=== PATIENT | female | born 1995 | race Caucasian/White ===

== ENCOUNTER 2017-08-14 18:45 | Emergency (ER) | payer OTHER ==
[~2017-08-14] VITALS: Ht 165.1 cm; Wt 79.4 kg
[2017-08-14] MEDS ORDERED: PRENATAL 19 TA1 EAC1 PO (18:53)
[2017-08-14 19:09] LABS: BILIRUBIN NEGATIVE (NEGATIVE); BLOOD NEGATIVE (NEGATIVE); CLARITY CLEAR (CLEAR); COLOR YELLOW (YELLOW); GLUCOSE NEGATIVE (NEGATIVE); KETONE TRACE (NEGATIVE); LEUKO ESTERASE TRACE (NEGATIVE); NITRITE NEGATIVE (NEGATIVE); PH 6.5 (5.0-9.0); SPECIFIC GRAVITY <= 1.005 (1.005-1.030); UROBILINOGEN 0.2 E.U./dl (0.2-1.0)
[2017-08-14 19:15] LABS: YEAST TRACE
[2017-08-14 19:59] LABS: BASO % 0.2 % (0.0-1.0); EOS % 0.3 % (1.0-4.0); HEMATOCRIT 32.8 % (37.0-47.0); HEMOGLOBIN 11.1 g/dl (12.0-16.0); LYMPH # 1.8 10*3/uL (1.3-4.4); LYMPH % 18.6 % (27.0-41.0); MEAN CELL VOLUME 97.6 fl (81.0-99.0); MEAN CORPUSCULAR HGB CONC 33.8 g/dl (33.0-37.0); MONO # 0.5 10*3/uL (0.1-1.0); MONO % 4.6 % (3.0-9.0); NEUT # 7.5 10*3/uL (2.3-7.9); PLATELET COUNT AUTOMATED 194 10*3/uL (130-400); RED BLOOD COUNT 3.36 10*6/uL (4.10-5.10); RED CELL DISTRI WIDTH 13.3 % (0-14.5); WHITE BLOOD COUNT 9.8 10*3/uL (4.8-10.8)
[2017-08-14 20:23] LABS: BUN 3 mg/dl (7-24); CHLORIDE 109 mmol/L (98-107); CREATININE 0.57 mg/dL (0.55-1.02); POTASSIUM 3.9 mmol/L (3.5-5.1); SODIUM 141 mmol/L (136-145)
[2017-08-14] MEDS ORDERED: MACROBID100 M1 PO (21:24)
[2017-08-14] MEDS ORDERED: Motrin,Rufen800 MG PO (21:24)
[2017-08-14 21:40] LABS: URINE AMPHETAMINES < 1000 (1000ng/ml); URINE BARBITURATES < 200 (200ng/ml); URINE BENZODIAZEPINES < 200 (200ng/ml); URINE CANNABINOIDS (THC) < 50 (50ng/ml); URINE COCAINE < 300 (300ng/ml); URINE METHADONE < 300 (300ng/ml); URINE OPIATES < 300 (300ng/ml); URINE PHENCYCLIDINE < 25 (25ng/ml)
== END 2017-08-14 21:43 | disposition home or self-care (01) ==
LOC: ED 18:45
PROVIDERS: Emergency Medicine Emergency Medical Services
DX: O23.42 Unspecified infection of urinary tract in pregnancy, second trimester (principal); B96.89 Other specified bacterial agents as the cause of diseases classified elsewhere; Z3A.23 23 weeks gestation of pregnancy; Z91.09 Other allergy status, other than to drugs and biological substances; Z79.899 Other long term (current) drug therapy

== ENCOUNTER 2018-01-09 19:04 | Emergency (ER) | payer OTHER ==
[~2018-01-09] VITALS: Ht 165.1 cm; Wt 87.1 kg
[~2018-01-09 19:04] MED LIST: MACROBID100 M1 PO; Motrin,Rufen800 MG PO; PRENATAL 19 TA1 EAC1 PO
[2018-01-09] MEDS ORDERED: Motrin,Rufen800 MG PO (20:22)
[2018-01-09] MEDS ORDERED: MEDROL DOSEPAK4 MG PO (20:22)
== END 2018-01-09 21:40 | disposition home or self-care (01) ==
LOC: ED 19:04
DX: O9A.23 Injury, poisoning and certain other consequences of external causes complicating the puerperium (principal); S46.911A Strain of unspecified muscle, fascia and tendon at shoulder and upper arm level, right arm, initial encounter; Z79.899 Other long term (current) drug therapy; Z91.011 Allergy to milk products; X58.XXXA Exposure to other specified factors, initial encounter; Y93.89 Activity, other specified; Y92.89 Other specified places as the place of occurrence of the external cause; Y99.8 Other external cause status

== ENCOUNTER 2018-04-08 16:49 | Emergency (ER) | payer OTHER ==
[~2018-04-08] VITALS: Ht 165.1 cm; Wt 83.9 kg
[~2018-04-08 16:49] MED LIST changes: +MEDROL DOSEPAK4 MG PO
[2018-04-08 17:35] LABS: BILIRUBIN NEGATIVE (NEGATIVE); BLOOD NEGATIVE (NEGATIVE); CLARITY CLEAR (CLEAR); COLOR YELLOW (YELLOW); GLUCOSE NEGATIVE (NEGATIVE); KETONE NEGATIVE (NEGATIVE); LEUKO ESTERASE NEGATIVE (NEGATIVE); NITRITE NEGATIVE (NEGATIVE); UROBILINOGEN 0.2 E.U./dl (0.2-1.0)
[2018-04-08 17:40] LABS: BACTERIA TRACE; EPITHELIAL CELLS 0-2; RBC 0-2 rbc/hpf (0-2); WBC 0-2 wbc/hpf (0-5)
[2018-04-08] MEDS ORDERED: METROGEL-VAGINA70 GM V (17:50)
== END 2018-04-08 18:01 | disposition home or self-care (01) ==
LOC: ED 16:49
PROVIDERS: Nurse Practitioner Family
DX: N76.0 Acute vaginitis (principal); B96.89 Other specified bacterial agents as the cause of diseases classified elsewhere; Z91.011 Allergy to milk products; Z79.2 Long term (current) use of antibiotics; Z79.899 Other long term (current) drug therapy

== ENCOUNTER 2018-05-30 03:42 | Emergency (ER) | payer OTHER ==
[~2018-05-30] VITALS: Ht 165.1 cm; Wt 92.5 kg
[~2018-05-30 03:42] MED LIST changes: +METROGEL-VAGINA70 GM V
[2018-05-30 04:04] LABS: BASO % 0.4 % (0.0-1.0); EOS # 0.4 10*3/uL (0.0-0.4); HEMATOCRIT 38.5 % (37.0-47.0); HEMOGLOBIN 13.4 g/dl (12.0-16.0); LYMPH # 3.5 10*3/uL (1.3-4.4); LYMPH % 39.6 % (27.0-41.0); MEAN CELL VOLUME 92.1 fl (81.0-99.0); MEAN CORPUSCULAR HGB 32.1 pg (27.0-31.0); MEAN CORPUSCULAR HGB CONC 34.8 g/dl (33.0-37.0); MEAN PLATELET VOLUME 9.2 fl (9.6-12.3); MONO # 0.6 10*3/uL (0.1-1.0); MONO % 6.3 % (3.0-9.0); NEUT # 4.4 10*3/uL (2.3-7.9); NEUT % 49.5 % (47.0-73.0); PLATELET COUNT AUTOMATED 248 10*3/uL (130-400); RED BLOOD COUNT 4.18 10*6/uL (4.10-5.10); RED CELL DISTRI WIDTH 11.9 % (0-14.5)
[2018-05-30 04:16] LABS: BUN 11 mg/dl (7-24); CHLORIDE 109 mmol/L (98-107); CREATININE 0.87 mg/dL (0.55-1.02); POTASSIUM 3.8 mmol/L (3.5-5.1); SODIUM 141 mmol/L (136-145)
[2018-05-30] MEDS ORDERED: ANUSOL-HC25 MG R (04:17)
[2018-05-30] MEDS ORDERED: MIRALAX POWDER17 G1 PO (04:17)
[2018-05-30] MEDS ORDERED: ZOLOFT100 MG PO (04:44)
== END 2018-05-30 04:56 | disposition home or self-care (01) ==
LOC: ED 03:42
PROVIDERS: Emergency Medicine Emergency Medical Services
DX: K64.9 Unspecified hemorrhoids (principal); K59.00 Constipation, unspecified; Z79.899 Other long term (current) drug therapy; Z91.011 Allergy to milk products